=== PATIENT | male | born 1945 | race Caucasian/White ===

== ENCOUNTER 2018-12-12 07:11 | Inpatient (IN) | payer MEDICARE ==
--- NOTE | 2018-12-06 17:01 | HP ---
AMENDED REPORT NOW INCLUDES DESIGNATED COSIGNER HISTORY AND PHYSICAL: DATE OF ADMISSION/SURGERY: 12/12/18 DATE OF OFFICE VISIT: 12/03/18 SURGEON: Dr. Lopez * (DICTATED BY NAOMI CUMMINGS) PROCEDURE: Right total hip replacement. CHIEF COMPLAINT: Right hip pain. HISTORY OF PRESENT ILLNESS: Ms. Hunter is a 73-year-old gentleman with right hip pain over the last few years. The patient has 9/10 pain in the right groin and lateral hips. He can no longer walk more than a block without severe pain. He has difficulty with prolonged sitting, prolonged standing, and stair climbing. In the past he has tried antiinflammatories, physical therapy, and use of a cane with minimal relief of pain. He has seen a chiropractor. At this point, he has failed conservative treatment and is electing for surgery at this point. PAST MEDICAL HISTORY: 1. GERD. 2. Hypercholesteremia. 3. Osteoarthritis. 4. Skin cancer. PAST SURGICAL HISTORY: 1. Appendectomy. 2. Hernia repair. 3. Right biceps tendon rupture repair. MEDICATIONS: 1. Tramadol HCl 50 mg 1 tab p.o. every 12 hours as needed for pain. 2. Omeprazole 40 mg one p.o. daily. 3. Atorvastatin calcium 40 mg 1 p.o. daily. 4. Co Q10. 5. Glucosamine. ALLERGIES: No known drug allergies. FAMILY HISTORY: Positive for coronary artery disease, stroke, and cancer. Negative for DVT or PE. SOCIAL HISTORY: The patient lives with his partner. 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 No tobacco or recreational drug use. He drinks 3 to 5 alcoholic beverages per week. He is normally active with golfing, hunting, and boating. He is right hand dominant. He is a former smoker, but he quit 20 years ago. REVIEW OF SYSTEMS: General: Negative for fevers, chills, night sweats, unexplained weight loss or gain. No known anesthesia problems. HEENT: Negative for headache, lightheadedness, syncopal episodes, visual changes. Integumentary: Negative for abrasions, lesions, open wounds. Cardiothoracic: Negative for hypertension, chest pain, palpitations, or edema. Respiratory: Negative for shortness of breath with exertion, chronic cough, or wheezing. GI : Negative for nausea, vomiting, diarrhea, constipation, GERD symptoms. : Negative for nocturia, urinary frequency, urgency, history of UTIs, or kidney problems. Musculoskeletal: Positive for right hip pain. Positive for chronic neck pain. Negative for chronic back pain or history of fractures. Neurologic: Negative for paresthesias, numbness, history of seizures, stroke, or poor balance. Negative of anxiety, depressions. Endocrine: Negative for diabetes, thyroid issues. Hematologic: Negative for easy bruising, anemia, bleeding disorders, or history of DVT or PE. ID: Negative for history of MRSA infection , hep C or HIV. PHYSICAL EXAMINATION GENERAL: Well-developed, well-nourished 74-year-old male in no acute distress. VITALS: Height 70 inches, weight 192 pounds, pulse 55, BP 142/70, temp 97.7, BMI is 27.5. HEENT: Normocephalic, atraumatic. PERRLA. Extraocular movements intact. NECK: Supple. No palpable lymph nodes. Throat clear. PULMONARY: Lungs clear to auscultation bilaterally. No wheezes, rales, or rhonchi. CARDIO: Regular rate and rhythm. S1 and S2 normal. No murmurs, rubs, gallops , or edema. ABDOMEN: Positive bowel sounds, soft, and nontender. NEUROLOGIC: A and O x3. Cranial nerves II through XII intact. Sensation is intact to light touch. MUSCULOSKELETAL: Bilateral lower extremity skin is intact. No no abrasions or open wounds. No palpable masses or lymph nodes. He has 80 degrees of flexion at the bilateral hips, 0 degrees internal rotation. On the right hip, he has 5 degrees external rotation with severe right groin pain. Left hip has 40 degrees of external rotation with minimal groin pain. Distally, the patient has no edema, varicosities, or hyperreflexia. He has 5/5 ankle, dorsiflexion and plantarflexion strength bilaterally. Full sensation to light touch is intact in all nerve distributions and 2+ palpable DP pulses bilaterally. DIAGNOSTIC STUDIES: Radiographs, Multiple views of the patient's right hip shows severe endstage arthritis with [id number]-[id number] contact. There is joint space narrowing, osteophyte formation and subchondral sclerosis. There is severe endstage arthritis at the right hip. IMPRESSION: Right hip severe osteoarthritis. PLAN: The patient is scheduled to undergo a right total hip replacement on . Dr. Lopez went over the procedure as well as the risks and benefits with the patient and he elected to proceed. He will return to the office 10 to 14 days postop for followup and suture removal. Upon discharge for the hospital, he will be e-scribed a prescription for Percocet for postoperative pain management. I-STOP was performed today in the office. NAOMI ENGLAND [id number]/[facility] #: [id number] MTDKate
[~2018-12-12 07:11] MED LIST: Buffered Lidocaine 1% SYRIN* 1 ML/SYRINGE INTRADERM ONE; Lactated Ringers 1000 ML Bag* 1,000 ML IV SCH; Tranexamic Acid 1,000 MG in NS 0.9% 50 ML* (outpatient use) IV SCH
--- OUTSIDE RECORDS SUMMARY | 2018-12-12 07:15 | XMS REPORT | Continuity of Care Document ---
:1945 External Reference #:[id number] Author Name Aleena Gordonecca Care Team Providers Name Role Phone Sangeetha John P.A. Primary Care Physician Unavailable Payers Date Identification Numbers Payment Provider Subscriber Policy Number: [id number] [facility] Medicare Solutions Bandar Hunter Group Number: [id number] [address] [id number] PayID: [id number] [place] [address] Problems Active Problems Provider Date Localized, primary osteoarthritis of the pelvic Beatrice Lopez M.D. Onset: region and thigh Family History Date Family Member(s) Observation Comments General Heart Disease General Stroke General Cancer Social History Type Date Description Comments Sex Unknown Lives With other Occupation Retired ETOH Use Currently consumes alcohol Tobacco Use Start: Unknown End: Unknown Patient is a former smoker quit 20 years Smoking Status Reviewed: 12/03/18 Patient is a former smoker quit 20 years Allergies, Adverse Reactions, Alerts Description No Known Drug Allergies Medications Active Medications SIG Qnty Indications Ordering Provider Date Cane walking cane, wt: M16.11 Beatrice Lopez M.D. 12/03/2018 191lb, Ht: 70" M25.551 Tramadol HCL 1 tab every 12 hours 14tabs Beatrice Lopez M.D. 11/05/2018 50mg Tablets as needed for pain Omeprazole 1 by mouth every day Unknown 40mg Capsules DR Atorvastatin Calcium 1 by mouth every day Unknown 40mg Tablets Co Q-10 Unknown Glucosamine 1500 Complex Unknown Vital Signs Date Vital Result Comment 12/03/2018 10:28am Height 70 inches 5'10" Weight 191.00 lb Heart Rate 52 /min BP Systolic 101 mmHg BP Diastolic 60 mmHg Respiratory Rate 16 /min Body Temperature 97.2 F Pain Level 10 BMI (Body Mass Index) 27.4 kg/m2 11/05/2018 2:50pm Height 70 inches 5'10" Weight 192.00 lb Heart Rate 55 /min BP Systolic 142 mmHg BP Diastolic 70 mmHg Body Temperature 97.7 F Pain Level 9 BMI (Body Mass Index) 27.5 kg/m2 Results Test Date Facility Test Result H/L Range Note Inr/Protime 12/03/2018 [facility] Inr 0.93 N 0.82-1.09 [address] [place] [address] [phone] Laboratory test 12/03/2018 [facility] Partial 36.8 seconds N 26.0-38.[address] [place] [address] PTT [phone] Urinalysis 12/03/2018 [facility] Urine Color Yellow Profile [address] [place] [address] [phone] Urine Appearance Clear Urine Specific Greene 1.016 N 1.010-1.030 Urine pH 6.0 N 5-9 Urine Urobilinogen Negative Negative Urine Ketones Negative Negative Urine Protein Negative Negative Urine Leukocytes Negative Negative Urine Blood Negative Negative Urine Nitrite Negative Negative Urine Bilirubin Negative Negative Urine Glucose Negative Negative Comp Metabolic Panel 12/03/2018 [facility] Sodium 140 mmol/L N 135-145 [address] [place] [address] [phone] Potassium 3.9 mmol/L N 3.5-5.0 Chloride 103 mmol/L N 101-111 Co2 Carbon Dioxide 31 mmol/L N 22-32 Anion Gap 6 mmol/L N 2-11 Calcium 9.2 mg/dL N 8.6-10.3 Albumin 4.1 g/dL N 3.2-5.2 Total Bilirubin 0.80 mg/dL N 0.2-1.0 Glucose 96 mg/dL N 70-100 Blood Urea Nitrogen 17 mg/dL N 6-24 Creatinine 1.02 mg/dL N 0.67-1.17 BUN/Creatinine Ratio 16.7 N 8-20 Total Protein 6.8 g/dL N 6.4-8.9 Globulin 2.7 g/dL N 2-4 Albumin/Globulin Ratio 1.5 N 1-3 Alkaline Phosphatase 72 U/L N 34-104 Alt 23 U/L N 7-52 Ast 23 U/L N 13-39 Egfr Non- 71.8 >60 Egfr 86.9 >60 2 Type & Screen 12/03/2018 [facility] Patient Blood Type B Positive [address] [place] [address] [phone] Antibody Screen NEGATIVE Xray 11/05/2018 [facility] Hip Right 2 Views And Pelvis <pending > [address] [address] [place] [address] [phone] Standard intensity warfarin therapeutic range: 2.0-3.0 High intensity warfarin therapeutic range: 2.5-3.5 2 Because ethnic data is not always readily available, this report includes an eGFR for both -Americans and non- Americans. The National Kidney Disease Education Program (NKDEP) does not endorse the use of the MDRD equation for patients that are not between the ages of 18 and 70, are , have extremes of body size, muscle mass, or nutritional status, or are non- or non-. According to the National Kidney Foundation, irrespective of diagnosis, the stage of the disease is based on the level of kidney function: Stage Description GFR(mL/min/1.73 m(2)) 1 Kidney damage with normal or decreased GFR 90 2 Kidney damage with mild decrease in GFR 60-89 3 Moderate decrease in GFR 30-59 4 Severe decrease in GFR 15-29 5 Kidney failure <15 (or dialysis) Encounters Type Date Location Provider Dx Diagnosis Office Visit 11/05/2018 [facility] Beatrice Lopez, M25.551 Pain in right hip 2:15p [facility] M16.11 Unilateral primary osteoarthritis, right hip Plan of Treatment Future Appointment(s):12/12/2018 12:15 pm - Adrian Davila PA-C at [facility] .MJennifer12/12/2018 12:15 pm - Beatrice Lopez M.D. at [facility] M.[facility]12/03/2018 - Beatrice Lopez M.D.M16.11 Unilateral primary osteoarthritis, right hipNew Medication:Cane - walking cane, wt: 191lb, Ht: 70 "Follow up:10-14 days post opM25.551 Pain in right hipNew Medication:Cane - walking cane, wt: 191lb, Ht: 70"
--- OUTSIDE RECORDS SUMMARY | 2018-12-12 07:15 | XMS REPORT | Continuity of Care Document ---
:1945 External Reference #:[id number] Author Name JAYY Sharma Address [address] [place] [address] Care Team Providers Name Role Phone Sangeetha John P.A. Primary Care Physician Unavailable Payers Date Identification Numbers Payment Provider Subscriber Policy Number: [id number] [facility] Medicare Solutions Yoli Velazquez Group Number: [id number] [address] [id number] PayID: [id number] [place] [address] Problems Active Problems Provider Date Localized, primary [...] Test Result H/L Range Note Inr/Protime 12/03/2018 [facility] Inr 0.93 N 0.82-1.[address] [place] [address] [phone] Laboratory test 12/03/2018 [facility] Partial 36.8 seconds N 26.0-38.[address] [place] [address] PTT [phone] Urinalysis 12/03/2018 [facility] Urine Color Yellow Profile [address] [place] [address] [phone] Urine Appearance Clear Urine Specific [place] 1.016 N 1.010-1.030 Urine pH 6.0 N 5-9 Urine Urobilinogen Negative Negative Urine Ketones Negative Negative Urine Protein Negative Negative Urine Leukocytes Negative Negative Urine Blood Negative Negative Urine Nitrite Negative Negative Urine Bilirubin Negative Negative Urine Glucose Negative Negative Comp Metabolic Panel 12/03/2018 [facility] Sodium 140 mmol/L N 135-[address] [place] [address] [phone] Potassium 3.9 mmol/L N 3.5-5.0 Chloride 103 [...] 86.9 >60 2 Type & Screen 12/03/2018 [facility] Patient Blood Type B Positive [address] [place] [address] [phone] Antibody Screen NEGATIVE Urine Culture And 12/03/2018 [facility] Urine Culture SEE RESULT [address] [place] [address] [phone] Xray 11/05/2018 [facility] Hip Right 2 <pending> [address] [place] [address] Pelvis [address] - [phone] 18[address] 1 Standard intensity warfarin therapeutic range: 2.0-3.0 [...] 15-29 5 Kidney failure <15 (or dialysis) 3 SEE RESULT BELOW Name: YOLI VELAZQUEZ : [address]: Beatrice Lopez MD Acct: [id number] Unit: [id number] AGE: 73 Location: [facility] Re12/03/18 SEX: M Status: REG REF SPEC: [id number] PETRONA: 12/03/181401 [facility] DR: Beatrice Lopez MD REQ: [id number] RECD: 12/03/18 STATUS: COMP [facility] DR: Sangeetha John PA _ SOURCE: URINE SPDESC: ORDERED: Urine Culture QUERIES: Urine Source: Clean Catch Procedure Result Reported Site Urine Culture Final 12/04/18- 1329 ML No Growth (<1,000 CFU/mL) * - Main Lab . END OF REPORT DEPARTMENT OF PATHOLOGY, [address] [place] [address] Thaddeus Gutierrez M.D. Director [facility] # [id number] Encounters Type Date Location Provider Dx Diagnosis Office Visit 11/05/2018 [facility] Beatrice Lopez M25.551 Pain in right hip 2:15p [facility]ennifer Godoy M16.11 Unilateral primary osteoarthritis, right hip Plan of Treatment Future Appointment(s):12/12/2018 12:15 pm - [facility] 12:15 pm - [facility] - Beatrice Lopez M.D.M16.11 Unilateral primary osteoarthritis, right hipNew Medication:Cane - walking cane, wt: 191lb, Ht: 70 "Follow up:10-14 days post opM25.551 Pain in right hipNew Medication:Cane - walking cane, wt: 191lb, Ht: 70"
[2018-12-12] MEDS ORDERED: Buffered Lidocaine 1% SYRIN* 1 ML/SYRINGE INTRADERM ONE (07:39)
[2018-12-12] MEDS ORDERED: ceFAZolin 2 GM in NS PREMIX(*) 2 GM/100 ML BAG IVPB ONE (07:39)
[2018-12-12] MEDS ORDERED: Midazolam* 1 MG/ML 5 ML VIAL (5 MG) ONE ×2 (08:57→10:09)
[2018-12-12] MEDS ORDERED: fentaNYL* 50 MCG/ML 2 ML VIAL (100 MCG VIAL) ONE (09:24)
[2018-12-12] MEDS ORDERED: Dexamethasone IV* 4 MG/ML 1 ML (4 MG) ONE (09:54)
[2018-12-12] MEDS ORDERED: oxyCODONE/Acetamin 5/325 MG* TAB PO PRN (10:37)
[2018-12-12] MEDS ORDERED: Scopolamine 1.5 mg* PATCH TRANSDERM PRN (10:37)
[2018-12-12] MEDS ORDERED: HYDROmorphone INJ1* 1 MG/ML SYRINGE IV PRN (10:37)
[2018-12-12] MEDS ORDERED: DiMENhydriNATE IV* 50 MG/ML VIAL IV PUSH PRN (10:37)
[2018-12-12] MEDS ORDERED: Ondansetron INJ* 2 MG/ML VIAL IV PRN ×2 (10:37→11:43)
[2018-12-12] MEDS ORDERED: fentaNYL* 50 MCG/ML 2 ML VIAL (100 MCG VIAL) IV PRN (10:37)
[2018-12-12] MEDS ORDERED: Naloxone* 0.4 MG/ML 1 ML VIAL IV PRN (10:37)
[2018-12-12] MEDS ORDERED: Ondansetron INJ* 2 MG/ML VIAL ONE (11:03)
[2018-12-12] MEDS ORDERED: Ketorolac INJ* 30 MG/ML 1 ML VIAL ONE (11:03)
[2018-12-12] MEDS ORDERED: Bupivacaine 0.25% SDV PF* 10 ML VIAL INJ ONE (11:20)
[2018-12-12] MEDS ORDERED: Cyclobenzaprine TAB* 10 MG PO PRN (11:43)
[2018-12-12] MEDS ORDERED: diPHENhydraMINE IV* 50 MG/ML 1 ml VIAL (BENADRYL) IV PRN (11:43)
[2018-12-12] MEDS ORDERED: Bisacodyl SUPP* 10 MG SUPP PR PRN (11:43)
[2018-12-12] MEDS ORDERED: Magnesium Hydroxide LIQ* 30 ML UDC PO PRN (11:43)
[2018-12-12] MEDS ORDERED: Morphine INJ* 2 MG/ML 1 ML SYRINGE (TWO MG - NEW SYRINGE VERSION) IV PRN (11:43)
[2018-12-12] MEDS ORDERED: Acetaminophen TAB* 325 MG PO PRN (11:43)
--- NOTE | 2018-12-12 14:36 | OP ---
Operative Report - Blank - Operative Report Date of Operation: 12/12/18 Note: YOLI VELAZQUEZ 1945 Date Of Surgery: 12/12/18 Beatrice Lopez MD Shells Inspector: Patsy SALGADO did help throughout the procedure with preparation of the hip, wound retraction, manipulation of the hip, and wound closure. Anesthesiologist: Mitchell Coronel MD Anesthesia Type: Spinal Preoperative Diagnosis: Right severe degenerative osteoarthritis of the hip Postoperative Diagnosis: As above Procedure Performed: Right Total Hip Arthroplasty Complications: None Specimen: Femoral head and acetabular reamings sent to pathology. Hardware used: This is uncemented Billy total hip arthroplasty hardware for the femur a size 5 accolade II with 127 neck angle femoral component, for the acetabulum a size 54 E trident II tritanium cluster hole shell, for the insert a size 36E trident x3 polyethylene insert, and for the femoral head a size 36 + 0 biolox ceramic V40 femoral head. Brief history/Indication: YOLI VELAZQUEZ was known in clinic and had a history of severe right hip pain. He failed conservative treatment with anti- inflammatories, pain pills, intra-articular injections and physical therapy. He elected to undergo right total hip arthroplasty due to continued pain and decreased quality of life. Radiographs showed severe end stage osteoarthritis of the hip with bone on bone contact. Informed consent was obtained from the patient. He understood the risks of surgery included but were not limited to: bleeding, infection, damage to nearby structures, intraoperative fracture, nerve palsy, failure of the hardware, early loosening, stiffness or loss of motion, dislocation, leg length discrepancy, anesthesia complications, stroke, heart attack, blood clot and . He wished to proceed. Intra-Operative findings: Intraoperatively the patient was noted to have severe loss of cartilage of the acetabulum and femoral head. Description of the Procedure: YOLI VELAZQUEZ was identified in the preanesthesia unit. His right hip was marked as the correct operative side. Informed consent was signed and placed in the chart. The patient was taken to the operating room and placed under anesthesia without complication. A moya catheter was placed. The patient was placed on the peg board with all bony prominences well padded. The right lower extremity was prepped and draped in the usual sterile fashion. Preoperative time -out was made to correctly identify the patient, side and site. Appropriate intraoperative antibiotics were given within one hour of incision. A standard posterior incision was made and carried sharply down to the lateral fascia. A new 10 blade was used to make an incision in the fascia in line with the skin incision. A charnley retractor was placed. The piriformis and conjoined tendons were identified and elevated off the posterolateral femur using electrocautery. These were tagged with number 5 Ethibond. Next electrocautery was used to make a posterolateral capsular flap and this was tagged with number 5 Ethibonds. The hip was carefully dislocated. Lesser trochanter to the center of the femoral head was measured at 65 mm. The oscillating saw was used to make the femoral neck cut. The femoral head was carefully removed. The femur was retracted anteriorly and the acetabular retractors were placed. Long-handled knife was used to sharply remove any remaining labrum from the acetabular rim. The acetabulum was sequentially reamed up to a size 53. A bleeding subchondral bone bed was obtained. A trial liner was placed and had excellent fit and stability. A 54E trident II tritanium cup was placed and had excellent stability with appropriate anteversion and abduction angle. A size 36E polyethylene liner was impacted into the acetabular shell. The liner was checked for stability and was stable. Next attention was turned to preparation of the femoral canal. A canal finder was used to enter the proximal femur. The femoral canal was sequentially broached up to a size 5 femoral broach trial. A trial neck and 36 +0 trial femoral head was chosen. Lesser trochanter to center of the femoral head measurement was satisfactory. The hip was reduced and taken through a range of motion. The hip was stable in all positions with good soft tissue tension and appropriate leg lengths. The hip was dislocated and all trials were removed. The final implant chosen was a accolade II size 5 with 127 neck angle. This stem was impacted into the femoral canal without difficulty. The stem was stable with appropriate anteversion. The femoral head chosen was a 36 + 0 ceramic head. The head was impacted onto the femoral neck without difficulty. The final lesser trochanter to center of the femoral head measurement was satisfactory. The hip was reduced and taken through a range of motion. The hip was stable in all positions with good soft tissue tension and appropriate leg lengths. The hip was copiously irrigated with sterile saline. The previously tagged capsule and tendons were repaired to the posterolateral femur through two trochanteric drill holes. The lateral fascia layer was closed using number 1 vicryls. The rest of the incision was closed in a layered fashion using 0 and 2-0 vicryls. The skin was closed using 3-0 monocryl suture and Dermabond. Sterile adaptic, 4x4s and paper tape was used to cover the incision. The patients anesthesia was reversed without difficulty. She was taken to the PACU in stable condition. Intended weight-bearing will be as tolerated with posterior hip precautions.
[2018-12-12] MEDS: oxyCODONE/Acetamin 5/325 MG* TAB PO PRN ×2 (14:54→21:09)
[2018-12-12] MEDS: ceFAZolin 1 GM ADVAN(*) 1 GM in NS 0.9% 50 ML* 50 ML IVPB SCH (18:02)
[2018-12-12] MEDS: oxyCODONE TAB* 5 MG TAB PO PRN ×2 (18:02→23:52)
[2018-12-12] MEDS ORDERED: Atorvastatin* 40 MG TAB PO SCH (21:00)
[2018-12-12] MEDS: Pantoprazole TAB * 40 MG TAB PO SCH (21:02)
[2018-12-12] MEDS: Docusate CAP* 100 MG PO SCH (21:02)
[2018-12-12] MEDS: Magnesium Hydroxide LIQ* 30 ML UDC PO SCH (21:03)
[2018-12-12] MEDS: Lactated Ringers 1000 ML Bag* 1,000 ML IV SCH (23:54)
[2018-12-13] MEDS: ceFAZolin 1 GM ADVAN(*) 1 GM in NS 0.9% 50 ML* 50 ML IVPB SCH ×2 (02:44→10:09)
[2018-12-13] MEDS: oxyCODONE/Acetamin 5/325 MG* TAB PO PRN ×4 (02:47→16:46)
[2018-12-13 05:56] LABS: Hematocrit 35 % (42-52); Hemoglobin 12.2 g/dL (14.0-18.0); Mean Platelet Volume 7.4 fL (7.4-10.4); Platelet Count 195 10^3/uL (150-450)
[2018-12-13] MEDS: oxyCODONE TAB* 5 MG TAB PO PRN (06:01)
[2018-12-13 06:11] LABS: BUN/Creatinine Ratio 14.3 (8-20); Calcium 8.4 mg/dL (8.6-10.3); EGFR African American 99.1 (>60); EGFR Non-African American 81.9 (>60); Potassium 3.9 mmol/L (3.5-5.0)
[2018-12-13] MEDS: Pantoprazole TAB * 40 MG TAB PO SCH (08:33)
[2018-12-13] MEDS: Docusate CAP* 100 MG PO SCH (08:33)
[2018-12-13] MEDS ORDERED: Vitamin THERAPEUTIC TAB PO SCH (09:00)
[2018-12-13] MEDS ORDERED: Apixaban* 2.5 MG TAB PO SCH (09:00)
[2018-12-13] MEDS: Magnesium Hydroxide LIQ* 30 ML UDC PO SCH (09:22)
[2018-12-13] MEDS: Lactated Ringers 1000 ML Bag* 1,000 ML IV SCH (10:04)
[2018-12-13 16:20] VITALS: BP 101/54
[2018-12-15] MEDS ORDERED: Scopolamine PATCH Remove* 1 NOTE MISC PATCH OFF ONE (10:38)
== END 2018-12-13 16:40 | disposition home health service (06) | DRG 470 ==
LOC: AA 07:11 → SSU 14:04
PROVIDERS: ADMIT Orthopaedic Surgery Adult Reconstructive Orthopaedic Surgery; ATTEND Orthopaedic Surgery Adult Reconstructive Orthopaedic Surgery
PROC: 0SR904A Replacement of Right Hip Joint with Ceramic on Polyethylene Synthetic Substitute, Uncemented, Open Approach (ICD-10-PCS; principal; 2018-12-12 08:45)
DX: M16.11 Unilateral primary osteoarthritis, right hip (principal); K21.9 Gastro-esophageal reflux disease without esophagitis; E78.00 Pure hypercholesterolemia, unspecified; G89.29 Other chronic pain; M54.2 Cervicalgia; M25.751 Osteophyte, right hip; F41.9 Anxiety disorder, unspecified; E78.5 Hyperlipidemia, unspecified; K22.70 Barrett's esophagus without dysplasia; K57.90 Diverticulosis of intestine, part unspecified, without perforation or abscess without bleeding; K64.8 Other hemorrhoids; Z85.828 Personal history of other malignant neoplasm of skin; Z82.49 Family history of ischemic heart disease and other diseases of the circulatory system; Z82.3 Family history of stroke; Z80.0 Family history of malignant neoplasm of digestive organs; Z87.891 Personal history of nicotine dependence; Z86.010 Personal history of colon polyps
CPT/HCPCS: 36415; 80048; 85014; 85018; 85049; A9270-GY; C1713; C1776; G8978-GP-CJ; G8978-GP-CK; G8979-GP-CI; G8979-GP-CJ; J0690; J1100; J1885; J2250; J2405; J3010; J3490